=== PATIENT | male | born 1985 | race Asian ===

== ENCOUNTER 2016-09-01 02:34 | Emergency (ER) | payer OTHER ==
[2016-09-01] MEDS ORDERED: Albuterol Nebulizer 2.5mg/3mL HHN STA (03:14)
[2016-09-01] MEDS ORDERED: Albuterol Nebulizer 2.5mg/3mL HHN ONE (03:19)
--- NOTE | 2016-09-01 03:23 | ED Physician Chart ---
Chief Complaint/HPI - Patient Information Date Seen:: 09/01/16 Time Seen:: 03:18 Chief Complaint:: cough History of Present Illness:: pt w 1 week of cough. pt is employee here. Pt says he saw Dr Jane 4 days ago and was rxd amox but cough persists without change. He says cough annoys him to point its hard to sleep. He has a hx of asthma but no mdi inhaler lately. no recent fever. cough is prod of white/yellow sputum. no CP. no back pain, no ZAVALA., no stiff neck, no rash. no new leg edema/pain. nonsmoker Allergies:: Allergies Allergy/AdvReac Type Severity Reaction Status Date / Time No Known Allergies Allergy Verified 09/01/16 03:01 Vitals:: Vital Signs - 8 hr 09/01/16 02:40 Temp 97.5 F HR 85 RR 18 BP 138/92 O2 Sat % 97 Historian:: Patient Review of Systems - Review of Systems General/Constitutional: No fever, No chills, No weight loss, No weakness, No diaphoresis, No edema, No loss of appetite Skin: No skin lesions, No rash, No bruising Head: No headache, No light-headedness Eyes: No loss of vision, No pain, No diplopia ENT: No earache, No nasal drainage, No sore throat, No tinnitus Neck: No neck pain, No swelling, No thyromegaly, No stiffness, No mass noted Cardio Vascular: No chest pain, No palpitations, No PND, No orthopnea, No edema Pulmonary: No SOB, Cough, Sputum, No wheezing GI: No nausea, No vomiting, No diarrhea, No pain, No melena, No hematochezia, No constipation, No hematemesis G/U: No dysuria, No frequency, No hematuria Musculoskeletal: No bone or joint pain, No back pain, No muscle pain Endocrine: No polyuria, No polydipsia Psychiatric: No prior psych history, No depression, No anxiety, No suicidal ideation Hematopoietic: No bruising, No lymphadenopathy Allergic/Immuno: No urticaria, No angioedema Neurological: No syncope, No focal symptoms, No weakness, No paresthesia, No headache, No seizure, No dizziness, No confusion, No vertigo Past Medical History - Past Medical History Past Medical History: Asthma/COPD Social History: Non Smoker Medication: Reviewed Family Medical History - Family Member Mother History Unknown: Yes Ethnicity: Non- Living Status: Still Living Hx Family Cancer: No Hx Family Coronary Artery Disease: No Hx Family Congestive Heart Failure: No Hx Family Hypertension: No Hx Family Stroke: No Hx Family Diabetes: No Hx Family Seizures: No Hx Family Dementia: No Hx Family HIV: No Hx Family COPD: No Hx Family Hepatitis: No Hx Family Psychiatric Problems: No Hx Family Tuberculosis: No Physical Exam - Physical Examination General/Constitutional: Awake, Well-developed, well-nourished, Alert, No distress, GCS 15, Non-toxic appearing, Ambulatory Head: Atraumatic Eyes: Lids, conjuctiva normal, PERRL, EOMI Skin: Nl inspection, No rash, No skin lesions, No ecchymosis, Well hydrated, No lymphadenopathy ENMT: External ears, nose nl, Nasal exam nl, Lips, teeth, gums nl Neck: Nontender, Full ROM w/o pain, No JVD, No nuchal rigidity, No bruit, No mass, No stridor Respiratory: Nl effort/Exclusion, Clear to Auscultation, No Wheeze/Rhonchi/Rales Other Respiratory comments:: good air mvt. no obstruction of airway. no stridor. nontoxic/alert. Cardio Vascular: RRR, No murmur, gallop, rubs, NL S1 S2 GI: No tenderness/rebounding/guarding, No organomegaly, No hernia, Normal BS's, Nondistended, No mass/bruits, No McBurney tenderness : No CVA tenderness Extremities: No tenderness or effusion, Full ROM, normal strength in all extremities, No edema, Normal digits & nails Other Extremities comments:: no cruzito sx Neuro/Psych: Alert/oriented, DTR's symmetric, Normal sensory exam, Normal motor strength, Judgement/insight normal, Mood normal, Normal gait, No focal deficits Misc: normal gait, Normal back, No paraspinal tenderness Labs/Radiology/EKG Results - Radiology Results Results: cxr nad ED Septic Shock - . Is Septic Shock (SBP<90, OR Lactate>4 mmol\L) present?: No - <6hrs of presentation: Vital Signs: Vital Signs - 8 hr 09/01/16 02:40 Temp 97.5 F HR 85 RR 18 BP 138/92 O2 Sat % 97 Reassessment (Disposition) - Reassessment Reassessment Condition:: Improved - Diagnosis Diagnosis:: bronchitis/ Reactive Airway Disease - Aftercare/Follow up Instructions Aftercare/Follow-Up Instructions:: Counseled pt regarding lab results/diagnosis & need follow up Medication Prescribed:: rx z-pack, albuterol mdi, hycodin cough syrup 16oz fu w pmd this week, return if worse. use albuterol and hycodin for cough. stop amox and add zmax abx instead. - Patient Disposition Discharge/Transfer:: Home Condition at Disposition:: Improved
--- NOTE | 2016-09-01 12:04 | Diagnostic Imaging Report ---
Portable chest x-ray History: Cough Allowing for portable technique the heart size is normal. No focal pulmonary parenchymal processes. No hilar or mediastinal abnormalities. Impression: No acute abnormalities.
== END 2016-09-01 04:30 | disposition home or self-care (01) ==
LOC: ER 02:34
DX: J45.909 Unspecified asthma, uncomplicated (principal)
CPT/HCPCS: 71010-TC; 94640; J7613; Z7502

== ENCOUNTER 2016-11-08 17:20 | Outpatient (CLI) | payer OTHER ==
[2016-11-08 18:35] LABS: % BASOPHILS 0.6 % (0.0-2.0); % EOSINOPHILS 7.7 % (0.0-5.0); % MONOCYTES 8.9 % (2.0-10.0); % NEUTROPHILS 37.8 % (40.0-80.0); HEMATOCRIT 47.9 % (39.0-49.0); HEMOGLOBIN 15.9 gm/dL (13.2-17.3); MEAN CELL VOLUME 83.7 fl (80-99); MEAN CORPUSCULAR HEMOGLOBIN 27.8 pg (26.0-30.0); MEAN CORPUSCULAR HGB CONC 33.2 pg (28.0-36.0); MEAN PLATELET VOLUME 6.9 fl; NEUTROPHILE ABSOLUTE 2.5 Th/cmm (1.8-8.0); PLATELET COUNT 388 Th/cmm (150-400); RED BLOOD COUNT 5.72 Mil/cmm (4.30-5.70); RED CELL DISTRIBUTION WIDTH 12.7 % (11.5-20.0); WHITE BLOOD COUNT 6.7 Th/cmm (4.8-10.8)
[2016-11-08 18:51] LABS: ALB/GLOB RATIO 1.3 (1.0-1.8); ALKALINE PHOSPHATASE 56 U/L (34-104); BILIRUBIN,TOTAL 0.6 mg/dL (0.3-1.0); BUN - UREA NITROGEN 12 mg/dL (7-25); CALCIUM SERUM 10.4 mg/dL (8.6-10.3); CARBON DIOXIDE 29.8 mEq/L (21.0-31.0); CHLORIDE 103 mEq/L (98-107); CHOLESTEROL 214 mg/dL (<200); CREATININE - SERUM 0.8 mg/dL (0.7-1.3); GLUCOSE 99 mg/dL (70-105); POTASSIUM SERUM 3.8 mEq/L (3.5-5.1); SGOT 32 U/L (13-39); SGPT/ALT 52 U/L (7-52); SODIUM SERUM 137 mEq/L (136-145); TRIGLYCERIDES 62 mg/dL (<150)
[2016-11-08 19:06] LABS: URINE BILIRUBIN NEGATIVE (NEGATIVE); URINE COLOR YELLOW; URINE GLUCOSE (UA) NEGATIVE (NEGATIVE); URINE KETONE NEGATIVE (NEGATIVE)
[2016-11-08 19:07] LABS: URINE BLOOD TRACE (NEGATIVE); URINE PROTEIN NEGATIVE (NEGATIVE); URINE UROBILINOGEN 0.2 E.U./dL (0.2 - 1.0)
[2016-11-08 19:08] LABS: URINE BACTERIA NONE SEEN /hpf (NONE SEEN); URINE EPITHELIAL CELLS NONE SEEN /lpf (FEW); URINE RBC NONE SEEN /hpf (0-5); URINE WBC NONE SEEN /hpf (0-5)
[2016-11-08 19:11] LABS: T4 TOTAL 8.24 ug/dl (6.09-12.23)
[2016-11-08 19:22] LABS: T3 (TRIIDOTHYRONNE) 0.98 ng/mL (0.87-1.78)
== END 2016-11-08 17:36 | disposition home or self-care (01) ==
LOC: LAB 17:20
PROVIDERS: ATTEND Family Medicine
DX: Z00.00 Encounter for general adult medical examination without abnormal findings (principal)
CPT/HCPCS: 36415-UA; 80053-TC; 80061-TC; 81001-TC; 84436-TC; 84443-TC; 84479-TC; 85025-TC